=== PATIENT | female | born 1960 | race Hispanic/Latino ===

== ENCOUNTER 2018-11-08 17:12 | Emergency (ER) | payer SELFPAY ==
[2018-11-08 17:44] VITALS: TEMP 98.9
[2018-11-08 20:11] VITALS: O2SAT 96
[2018-11-08 20:12] VITALS: BP 156/89
== END 2018-11-08 20:35 | disposition home or self-care (01) ==
LOC: ER 17:12
DX: H66.92 Otitis media, unspecified, left ear (principal); J03.90 Acute tonsillitis, unspecified; E11.9 Type 2 diabetes mellitus without complications; I10 Essential (primary) hypertension; J45.909 Unspecified asthma, uncomplicated
CPT/HCPCS: 71045; 82948; 87070; 87880; J0696; J1885